=== PATIENT | female | born 1930 | race Caucasian/White ===

== ENCOUNTER 2016-06-20 12:39 | Outpatient (CLI) | payer MEDICARE, OTHER | END 2016-06-20 12:40 | disposition home or self-care (01) | DX: Z79.01 Long term (current) use of anticoagulants (principal) ==

== ENCOUNTER 2016-07-18 14:41 | Outpatient (CLI) | payer MEDICARE, OTHER | END 2016-07-18 14:42 | disposition home or self-care (01) | DX: Z79.01 Long term (current) use of anticoagulants (principal) ==

== ENCOUNTER 2016-08-01 15:01 | Outpatient (CLI) | payer MEDICARE, OTHER | END 2016-08-01 15:02 | disposition home or self-care (01) | DX: I82.412 Acute embolism and thrombosis of left femoral vein (principal); I82.432 Acute embolism and thrombosis of left popliteal vein; I26.09 Other pulmonary embolism with acute cor pulmonale ==

== ENCOUNTER 2016-08-24 11:55 | Outpatient (CLI) | payer MEDICARE, OTHER | END 2016-08-24 11:56 | disposition home or self-care (01) | DX: I82.409 Acute embolism and thrombosis of unspecified deep veins of unspecified lower extremity (principal) ==

== ENCOUNTER 2017-05-24 14:30 | Outpatient (CLI) | payer MEDICARE, OTHER ==
--- NOTE | 2017-05-28 13:54 | Mammography Report ---
EXAM: DIGITAL BILATERAL SCREENING MAMMOGRAM 05/24/2017 CLINICAL INDICATION: An 86-year-old nulliparous patient, for screening. TECHNIQUE: Routine CC and MLO projections were obtained of the breasts. Bilateral laterally exaggerated craniocaudal views. COMPARISON: 04/2016, 04/2015, 03/2014, 06/2012, 02/2010. FINDINGS: The breasts again demonstrate heterogeneously dense fibroglandular parenchyma bilaterally. Coarse and punctate, typically benign calcifications are present. No suspicious masses, clustered microcalcifications, or regions of architectural distortion are identified. IMPRESSION: BENIGN FINDINGS. RECOMMENDATIONS: Routine annual screening unless otherwise clinically indicated. BIRADS 2 - Benign findings. STANDARD QUALIFYING STATEMENTS 1. This examination was reviewed with the aid of Computed Aided Detection (CAD). 2. A negative x-ray report should not delay biopsy if a dominant or clinically suspicious mass is present. More than 5% of cancers are not identified by x-ray. 3. Dense breasts may obscure an underlying neoplasm. TD: 05/25/2017 14:51 CHRISTI
== END 2017-05-24 14:31 | disposition home or self-care (01) ==
LOC: DI.S 14:30
PROVIDERS: ATTEND Internal Medicine
DX: Z12.31 Encounter for screening mammogram for malignant neoplasm of breast (principal)
CPT/HCPCS: 77067

== ENCOUNTER 2017-07-06 11:56 | Outpatient (CLI) | payer MEDICARE, OTHER ==
--- NOTE | 2017-07-06 13:13 | XRAY Report ---
DATE OF SERVICE: 07/06/2017 THREE VIEW RIGHT FOOT: 07/06/2017 CLINICAL INDICATION: Pain after fall. COMPARISON: Plain films 09/18/2006, MRI 10/20/2006. FINDINGS: AP, lateral, and oblique views of the right foot demonstrate mildly angulated fractures of the distal shafts of the second, third, and fourth metatarsals. No definite intraarticular extension is seen. Soft tissue swelling is present. 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 No foreign body is seen in the soft tissues. IMPRESSION: MILDLY ANGULATED FRACTURES OF THE DISTAL SHAFTS OF THE RIGHT SECOND, THIRD, AND FOURTH METATARSALS. TD: 07/06/2017 14:12
== END 2017-07-06 11:57 | disposition home or self-care (01) ==
LOC: DI 11:56
PROVIDERS: ATTEND Internal Medicine
DX: S92.321A Displaced fracture of second metatarsal bone, right foot, initial encounter for closed fracture (principal); S92.331A Displaced fracture of third metatarsal bone, right foot, initial encounter for closed fracture; S92.341A Displaced fracture of fourth metatarsal bone, right foot, initial encounter for closed fracture

== ENCOUNTER 2017-08-02 12:43 | Outpatient (CLI) | payer MEDICARE, OTHER ==
--- NOTE | 2017-08-03 10:13 | DEXA Report ---
DEXA: 08/02/2017 CLINICAL INDICATION: Postmenopausal. TECHNIQUE: Dual energy x-ray absorptiometry (DXA) was performed on a [employer] system. Regions measured are the AP spine, femoral neck, and, if needed, forearm. COMPARISON: None. In accordance with the International Society for Clinical Densitometry (ISCD) guidelines, data from previous exams may be reanalyzed using current recommendations and techniques. This is done to allow a more accurate basis for comparison with the current study. FINDINGS The data for the lumbar spine is as follows: REGION BMD (g/cm/cm) T-SCORE Z-SCORE L1 1.005 -1.0 0.1 L2 1.006 -1.6 -0.5 L3 0.963 -2.0 -0.8 L4 0.997 -1.7 -0.5 L1-L4 0.992 -1.6 -0.4 NOTE: All evaluable vertebrae are used for classification. The data for the hip is as follows: REGION BMD (g/cm/cm) T-SCORE Z-SCORE Neck 0.757 -2.0 -0.1 TOTAL 0.807 -1.6 0.2 NOTE: The femoral neck or total proximal femur, whichever is lowest, is used for classification. IMPRESSION THE WHO CLASSIFICATION BASED ON THE INTERNATIONAL REFERENCE STANDARD IS OSTEOPENIA. THE FRACTURE RISK IS INCREASED. RECOMMENDATION: Patients with diagnosis of osteoporosis or osteopenia should have regular bone mineral density assessment. For those eligible for Medicare, routine testing is allowed once every 2 years. Testing frequency can be increased for patients who have rapidly progressing disease or for those who are receiving medical therapy to restore bone mass. COMMENT: World Health Organization (WHO) definitions for osteoporosis and osteopenia: NORMAL BMD: T-score at 1.0 or higher, fracture risk is low. OSTEOPENIA BMD: T-score between 1.0 and -2.5, fracture risk is increased. OSTEOPOROSIS BMD: T-score at 2.5 or lower, fracture risk high. National Osteoporosis Foundation recommends: 1. Obtain adequate dietary calcium (at least 1200 mg per day) and vitamin D (400 -800 international units per day). 2. Participate, as appropriate, in regular weightbearing and muscle- strengthening exercise. 3. Avoid tobacco use and reduce alcohol and caffeine intake. 4. For more detailed information see the website at www.NOF.org. TD: 08/02/2017 18:31 MTDD
== END 2017-08-02 12:44 | disposition home or self-care (01) ==
LOC: DI 12:43
PROVIDERS: ATTEND Internal Medicine
DX: M85.89 Other specified disorders of bone density and structure, multiple sites (principal)
CPT/HCPCS: 77080

== ENCOUNTER 2017-11-28 10:08 | Outpatient (CLI) | payer MEDICARE, OTHER ==
--- NOTE | 2017-11-28 12:32 | Ultrasound Report ---
Procedure Date: 11/28/2017 Accession Number: [id number] / [id number] Procedure: US - Duplex Ext Veins Right CPT Code: FULL RESULT: EXAM: RIGHT LOWER EXTREMITY VENOUS ULTRASOUND EXAM DATE: 11/28/2017 12:00 PM. CLINICAL HISTORY: Right leg pain. COMPARISON: None. TECHNIQUE: Real-time sonographic vascular imaging was performed by the safety analyst through the lower extremity utilizing both color-flow and Doppler spectral analysis. Multiple inside sales account representative static images were saved for review. FINDINGS: Common Femoral Vein (CFV): Normal. CFV-GSV Junction: Normal. Profunda Femoral Vein (PFV): Normal. Femoral Vein (FV) Prox: Normal. Femoral Vein (FV) Mid: Normal. Femoral Vein (FV) Dist: Normal. Popliteal Vein: Partially occlusive thrombus present, new compared with 01/12/2015. Posterior Tibial Veins: Normal. Peroneal Veins: Normal. Other: Moderately subcutaneous edema is seen in the calf region. IMPRESSION: 1. Partially occlusive thrombus seen in the right popliteal vein. Remainder deep venous branches remain patent. 2. Moderate subcutaneous edema seen in the calf region. RADIA The call report notification system was initiated by Dr. Gabriel Alexander at 12:28 hrs on 11/28/17. The above findings were discussed with Argenis Kilgore by Dr. Gabriel Alexander at 12:31 hrs on 11/28/17.
== END 2017-11-28 10:09 | disposition home or self-care (01) ==
LOC: DI 10:08
PROVIDERS: ATTEND Internal Medicine
DX: I82.431 Acute embolism and thrombosis of right popliteal vein (principal); R60.0 Localized edema

== ENCOUNTER 2018-09-10 15:38 | Outpatient (CLI) | payer MEDICARE, OTHER ==
--- NOTE | 2018-09-10 16:48 | Mammography Report ---
Reason: Annual Screening Procedure Date: 09/10/2018 Accession Number: [id number] / [id number] Procedure: RITA - Screening Mammo Dig Bilat CPT Code: FULL RESULT: EXAM: Screening Mammo Dig Bilat DATE: 09/10/2018 4:24 PM CLINICAL HISTORY: Routine screening. No reported personal or family history of breast cancer. TECHNIQUE: (B) - Bilateral Bilateral CC and MLO views were obtained. COMPARISON: 05/24/2017 through 04/07/2014 PARENCHYMAL PATTERN: (D) - The breasts demonstrate heterogeneously dense fibroglandular parenchyma bilaterally. FINDINGS: Bilateral breasts: There are no suspicious masses, calcifications, or areas of distortion. IMPRESSION: Negative examination. BI-RADS category1 RECOMMENDATION: (ANNUAL) - Recommend routine annual screening mammography. BI-RADS CATEGORY: (1) - Negative STANDARD QUALIFYING STATEMENTS: 1. This examination was not reviewed with the aid of Computer-Aided Detection (CAD). 2. A negative or benign imaging report should not preclude biopsy if clinically suspicious findings are present. 3. Dense breasts may obscure an underlying neoplasm. 4. This examination was reviewed without the aid of 3D breast imaging (tomosynthesis).
== END 2018-09-10 15:39 | disposition home or self-care (01) ==
LOC: DI 15:38
PROVIDERS: ATTEND Internal Medicine
DX: Z12.31 Encounter for screening mammogram for malignant neoplasm of breast (principal)
CPT/HCPCS: 77067